=== PATIENT | female | born 2000 | race Two or more races ===

== ENCOUNTER → 2024-11-21 | Outpatient (CLI) | payer OTHER, SELFPAY ==
[2024-11-21 14:37] LABS: Misc Send Out* See Sep Rpt
[2024-11-21 16:55] LABS: Influenza A Ag Negative; Influenza B Ag Negative; Strep A Rapid Negative (Negative)
[2024-11-22 12:37] LABS: Cocci Serology, IgM Positive (Negative)
[2024-11-22 12:38] LABS: Cocid Sro, CF/ID (UCD) NO CHG* See Sep Rpt
== END | disposition home or self-care (01) ==
PROVIDERS: PCP Nurse Practitioner Family; Referring Provider Nurse Practitioner Family; Visit Provider Nurse Practitioner Family
DX: R05.9 Cough, unspecified (principal); R53.83 Other fatigue; B50.9 Plasmodium falciparum malaria, unspecified; B38.89 Other forms of coccidioidomycosis; Z20.828 Contact with and (suspected) exposure to other viral communicable diseases
CPT/HCPCS: 36415; 86635; 86769; 87502; 87651